=== PATIENT | male | born 1955 | race Caucasian/White ===

== ENCOUNTER 2017-04-07 16:15 | Emergency (ER) | payer OTHER ==
[~2017-04-07] VITALS: Ht 180.3 cm; Wt 112.6 kg
[2017-04-07 17:30] LABS: BASO # 0.1 10^3/uL (0.0-0.2); BASO % 0.7 % (0.0-1.0); EOS # 0.1 10^3/uL (0.0-0.50); EOS % 0.8 % (0.0-3.0); IMMATURE GRANULOCYTE % 0.6 % (0-0); LYMPH # 1.8 10^3/uL (1.5-4.5); LYMPH % 21.3 % (24.0-44.0); MEAN CORPUSCULAR HEMOGLOBIN 28.7 pg (27.0-33.0); MONO # 0.7 10^3/uL (0.0-0.8); MONO % 8.4 % (0.0-5.0); NEUTROPHILS # 5.6 10^3/uL (1.8-7.7); NEUTROPHILS % 68.2 % (36.0-66.0); PLATELET COUNT, AUTOMATED 305 10^3/uL (150-450); RED CELL DISTRIBUTION WIDTH 12.5 % (11.5-14.5); WHITE BLOOD COUNT 8.3 10^3/uL (4.0-10.0)
[2017-04-07 17:46] LABS: INR 0.98
[2017-04-07 17:52] LABS: ERYTHROCYTE SEDIMENTATION RATE 4 mm/hr (0-20)
[2017-04-07 17:54] LABS: ALBUMIN/GLOBULIN RATIO 1.25 (1.00-1.93); ALT/SGPT 46 U/L (12-78); ANION GAP 9 MEQ/L (8-16); AST/SGOT 23 U/L (15-37); BILIRUBIN,DIRECT 0.1 MG/DL (0.0-0.2); BILIRUBIN,TOTAL 0.4 MG/DL (0.2-1.0); BLOOD UREA NITROGEN 14 MG/DL (7-18); CALCIUM LEVEL 8.7 MG/DL (8.8-10.2); CARBON DIOXIDE LEVEL 26 MEQ/L (21-32); CHLORIDE LEVEL 104 MEQ/L (98-107); CREATININE FOR GFR 0.98 MG/DL (0.70-1.30); GLOMERULAR FILTRATION RATE > 60.0 (>49); GLUCOSE, FASTING 137 MG/DL (80-110); POTASSIUM SERUM 3.5 MEQ/L (3.5-5.1); SODIUM LEVEL 139 MEQ/L (136-145); TOTAL PROTEIN 7.2 GM/DL (6.4-8.2)
[2017-04-07 18:00] LABS: ALKALINE PHOSPHATASE 87 U/L (45-117); FREE T4 0.88 NG/DL (0.76-1.46)
[2017-04-07] MEDS ORDERED: ISOVUE-370 76% 100ML VIAL (Q9967) As Ordered ONE (18:20)
[2017-04-07] MEDS ORDERED: LORATADINE 10 MG TAB PO ONE (18:30)
--- NOTE | 2017-04-07 19:00 | REPUSA ---
CT angiogram of the chest Clinical statement: Chest pain and shortness of breath. Technique: Multiple axial CT images were obtained from the thoracic inlet through the upper abdomen a fter a bolus administration of nonionic intravenous contrast. Coronal and sagittal reconstructions we re also obtained. No comparison is available. Findings: The pulmonary arteries are well-opacified with contrast, with no intraluminal filling defec ts to suggest embolism. The thoracic aorta is unremarkable. Thyroid gland is within normal limits. Th ere is no thoracic lymphadenopathy. There are no pericardial or pleural effusions. The lungs are raudel r. Limited imaging of the upper abdomen does not demonstrate any acute findings. There is a low atten uation nodule in the left adrenal gland measuring 2.0 x 1.7 cm. There are no suspicious osseous lesio ns. Impression: 1. No evidence of pulmonary embolism. 2. No acute intrapulmonary disease 3. Benign left adrenal adenoma.
[2017-04-07] MEDS ORDERED: HYDR12.55 PO ×2 (19:17→19:26)
[2017-04-07] MEDS ORDERED: FLON1SPR ×2 (19:17→19:26)
[2017-04-07] MEDS ORDERED: LORA10CA PO ×2 (19:17→19:26)
[2017-04-07 19:32] VITALS: BP 159/86
--- NOTE | 2017-04-08 11:39 | REP ---
?REASON: Chest pain. COMPARISON: None. COMPARISON: No priors. FINDINGS: The superior mediastinal structures are midline. The cardiac silhouette is unremarkable in size, shape, and position. The diaphragmatic surfaces of the lungs are regular, and the costophrenic angles are clear. The pulmonary burton are clear. The imaged osseous structures are intact. IMPRESSION: There is no acute cardiopulmonary disease. Signed by Abdifatah Hyman DO 04/08/2017 09:48 A
--- NOTE | 2017-04-08 12:40 | ECGEPIP ---
Stationary ECG Study [facility] - ED Test Date: 2017-04-07 Pat Name: FRANCA KULKARNI Department: Room: - Gender: M Case Resolution Specialist: evelin : [id number] Requested By: ZORAIDA DE LA ROSA Order Number: [id number] Reading MD: Miriam Mueller Measurements Intervals [place] Rate: 102 P: 46 AK: 163 QRS: 23 QRSD: 96 T: 52 QT: 356 QTc: 464 Interpretive Statements SINUS TACHYCARDIA NONSPECIFIC T-WAVE ABNORMALITY ABNORMAL RHYTHM ECG NO PRIOR FOR COMPARISON Electronically Signed On 04-08-2017 12:39:50 EDT by Miriam Mueller
== END 2017-04-07 19:34 | disposition home or self-care (01) ==
LOC: M ED 16:15
DX: R09.82 Postnasal drip (principal); R07.89 Other chest pain; I10 Essential (primary) hypertension
CPT/HCPCS: 71020; 71275; 80048; 80076; 82550; 82553; 83690; 83880; 84439; 84443; 85025; 85379; 85610; 85652; 85730; 86140; 87040; 93005; 93041; 94760; 99284; Q9967

== ENCOUNTER 2022-11-23 16:57 | Emergency (ER) | payer MEDICARE, SELFPAY ==
[~2022-11-23] VITALS: Ht 180.3 cm; Wt 120.0 kg
[~2022-11-23 16:57] MED LIST: FLON1SPR; HYDR12.55 PO; LORA10CA PO
[2022-11-23 17:50] LABS: BASO # 0.1 10^3/uL (0.0-0.2); BASO % 0.5 % (0.0-1.0); EOS % 0.1 % (0.0-3.0); HEMATOCRIT 47.5 % (42.0-52.0); LYMPH # 0.9 10^3/uL (1.5-5.0); LYMPH % 6.4 % (24.0-44.0); MEAN CORPUSCULAR HGB CONC 33.7 g/dl (32.0-36.5); MEAN CORPUSCULAR VOLUME 89.1 fl (80.0-96.0); MONO # 0.9 10^3/uL (0.0-0.8); MONO % 5.8 % (2.0-8.0); NEUTROPHILS # 12.6 10^3/uL (1.5-8.5); NEUTROPHILS % 85.7 % (36.0-66.0); PLATELET COUNT, AUTOMATED 238 10^3/uL (150-450); RED BLOOD COUNT 5.33 10^6/uL (4.30-6.10); WHITE BLOOD COUNT 14.6 10^3/uL (4.0-10.0)
[2022-11-23] MEDS ORDERED: MORPHINE 4 MG/ML 1ML VIAL IV ONE ×2 (18:10→18:50)
[2022-11-23 18:23] LABS: ALBUMIN 3.7 G/DL (3.2-5.2); BILIRUBIN,DIRECT 0.4 MG/DL (<0.4); CALCIUM LEVEL 9.1 MG/DL (8.3-10.6); CK-MB VALUE MASS 4.9 NG/ML (<3.6); CREATININE FOR GFR 1.62 MG/DL (0.70-1.30); GLOMERULAR FILTRATION RATE 45.6 (>49); MB/CK RELATIVE INDEX 2.53 (< OR =4); POTASSIUM SERUM 4.1 MMOL/L (3.5-5.1); TOTAL PROTEIN 6.2 G/DL (5.7-8.2)
[2022-11-23] MEDS ORDERED: NS 1,000 ML IV ONE (18:35)
[2022-11-23] MEDS ORDERED: ISOVUE-370 76% 100ML VIAL As Ordered ONE (18:39)
[2022-11-23] MEDS ORDERED: diazePAM 10MG/2ML SYRINGE IV ONE ×2 (19:10→22:20)
[2022-11-23 19:22] LABS: HEMOGLOBIN A1c 6.6 % (4.0-6.0)
[2022-11-23 19:40] LABS: RSV AMPLIFICATION NEGATIVE (NEGATIVE)
[2022-11-23 21:04] LABS: ABG BASE EXCESS -7.6 (-2.0-2.0); ABG HCO3 15.2 MMOL/L (22.0-26.0); ABG O2 SATURATION 91.2 % (95.0-99.0); ABG PARTIAL PRESSURE CO2 25.4 mmHg (35.0-45.0); ABG PARTIAL PRESSURE O2 61.7 mmHg (75.0-100.0); ABG STANDARD HCO3 18.3 MMOL/L. (22.0-26.0); ABG pH (ARTERIAL) 7.395 UNITS (7.350-7.450)
[2022-11-23] MEDS ORDERED: fentaNYL 100 MCG/2 ML INJECTION IV PRN (22:00)
[2022-11-23] MEDS ORDERED: KETOROLAC 30 MG/ML 1ML VIAL IV ONE (22:20)
[2022-11-24 01:21] VITALS: BP 122/73
[2022-11-24 01:27] LABS: CK-MB VALUE MASS 6.4 NG/ML (<3.6)
[2022-11-24 01:29] LABS: INR 1.33; PROTHROMBIN TIME 16.7 SECONDS (12.5-14.5)
[2022-11-24 01:30] LABS: MB/CK RELATIVE INDEX 1.87 (< OR =4); PARTIAL THROMBOPLASTIN TIME 28.9 SECONDS (24.8-34.2)
== END 2022-11-24 01:33 | disposition short-term general hospital (02) ==
LOC: M ED 16:57
DX: S32.049A Unspecified fracture of fourth lumbar vertebra, initial encounter for closed fracture (principal); S36.113A Laceration of liver, unspecified degree, initial encounter; V48.5XXA Car driver injured in noncollision transport accident in traffic accident, initial encounter; Y92.410 Unspecified street and highway as the place of occurrence of the external cause; I26.99 Other pulmonary embolism without acute cor pulmonale; I10 Essential (primary) hypertension; R60.9 Edema, unspecified
CPT/HCPCS: 36600; 70450; 70486; 71045; 71275; 72125; 72131; 73502; 73552; 74177; 80048; 80076; 82550; 82553; 82803; 83036; 83605; 83690; 83880; 84484; 85025; 85379; 85610; 85730; 87631; 93005; 93041; 94660; 94760; 96365; 96366; 96367; 96375; 96376; 99285; J1885; J3010; J3360; Q9967